=== PATIENT | male | born 1960 | race African-American/Black ===

== ENCOUNTER 2018-11-08 09:48 | Inpatient (IN) | payer MEDICARE, MEDICAID ==
[~2018-11-08] VITALS: Ht 198.1 cm; Wt 69.4 kg
[2018-11-08] MEDS ORDERED: HALOPERIDOL LACTATE 5 MG/ML VIAL IM ONE (10:45)
[2018-11-08] MEDS ORDERED: LORazepam 2 MG/ML VIAL IM ONE (10:45)
[2018-11-08] MEDS ORDERED: DiphenhydrAMINE HCL 50 MG/ML VIAL IM ONE (10:45)
[2018-11-08 12:42] LABS: BASOPHILS % (AUTO) 0.9 % (0.0-2.0); EOSINOPHILS % (AUTO) 2.1 % (1.0-6.0); HEMATOCRIT 35.3 % (41-53); HEMOGLOBIN 11.5 g/dL (13.5-17.5); LYMPHOCYTES # (AUTO) 1.5 K/uL (1.0-4.8); LYMPHOCYTES % (AUTO) 27.9 % (22.0-44.0); MEAN CORPUSCULAR HEMOGLOBIN 31.7 pg (26.0-34.0); MEAN CORPUSCULAR HGB CONC 32.6 G/dL (31.0-37.0); MEAN CORPUSCULAR VOLUME 97 fL (80-100); MONOCYTES # (AUTO) 0.4 K/uL (0.1-1.0); NEUTROPHILS # (AUTO) 3.3 K/uL (1.8-7.7); NEUTROPHILS % (AUTO) 62.1 % (40.0-70.0); PLATELET COUNT (AUTO) 333 K/uL (150-450); RED BLOOD CELL COUNT(AUTO) 3.63 MIL/uL (4.50-5.90); RED CELL DISTRIBUTION WIDTH 14.5 % (11.5-14.5)
[2018-11-08 12:50] LABS: ANION GAP 5 mmol/L (8-16); CALCIUM, TOTAL 8.7 mg/dL (8.8-10.5); CARBON DIOXIDE 30 mmol/L (22-29); CHLORIDE 106 mmol/L (98-107); CREATININE 1.34 mg/dL (0.60-1.30); GLOMERULAR FILTR. RATE CALC > 60 mL/min (>60); GLUCOSE,RANDOM 141 mg/dL (70-110); POTASSIUM 3.7 mmol/L (3.5-5.1); SODIUM SERUM 141 mmol/L (136-145); UREA NITROGEN, BLOOD 19 mg/dL (7-18)
[2018-11-08 12:57] LABS: ALANINE AMINOTRANSFERASE 23 U/L (12-78); ALKALINE PHOSPHATASE 61 U/L (46-116); ASPARTATE AMINOTRANSFERASE 41 U/L (15-37); BILIRUBIN,TOTAL 0.5 mg/dL (0.1-1.0); TOTAL PROTEIN, SERUM 6.6 g/dL (6.4-8.2)
[2018-11-08] MEDS ORDERED: BACITRACIN 0.9 GM PACKET OINTMENT TP ONE (14:00)
[2018-11-08] MEDS ORDERED: HALOPERIDOL 5 MG TABLET PO PRN (14:30)
[2018-11-08] MEDS ORDERED: ZOLPIDEM TARTRATE 10 MG TABLET PO PRN (14:30)
[2018-11-08 16:40] LABS: AMPHET/METH SCREEN,URINE NEGATIVE (NEGATIVE); BARBITURATE SCREEN, URINE NEGATIVE (NEGATIVE); BENZODIAZEPINES SCREEN,URINE NEGATIVE (NEGATIVE); CANNABINOID SCREEN,URINE POSITIVE (NEGATIVE); COCAINE SCREEN,URINE POSITIVE (NEGATIVE); METHADONE SCREEN, URINE NEGATIVE (NEGATIVE); OPIATE SCREEN,URINE NEGATIVE (NEGATIVE); PHENCYCLIDINE SCREEN,URINE NEGATIVE (NEGATIVE)
[2018-11-08 17:28] VITALS: BP 142/76
[2018-11-08] MEDS ORDERED: ONDANSETRON HCL 4 MG TABLET PO PRN (20:45)
[2018-11-08] MEDS ORDERED: PETROLATUM,WHITE 28 GM JELLY TP PRN (20:45)
[2018-11-08] MEDS: BACITRACIN 0.9 GM PACKET OINTMENT TP SCH (20:45)
[2018-11-08] MEDS ORDERED: GuaiFENesin/D-METHORPHAN [SUGAR-FREE] 200-20MG/10 ML SYRUP UDCUP PO PRN (20:45)
[2018-11-08] MEDS ORDERED: LOPERAMIDE HCL 2 MG CAPSULE PO PRN (20:45)
[2018-11-08] MEDS ORDERED: ACETAMINOPHEN 325 MG TABLET PO PRN (20:45)
[2018-11-08] MEDS ORDERED: IBUPROFEN 400 MG TABLET PO PRN (20:45)
[2018-11-08] MEDS ORDERED: MAG HYDROX/AL HYDROX/SIMETH ES 30 ML SUSPENSION UDCUP PO PRN (20:45)
[2018-11-08] MEDS ORDERED: DOCUSATE SODIUM 100 MG CAPSULE PO PRN (20:45)
[2018-11-08] MEDS ORDERED: ALBUTEROL SULFATE HFA 90 MCG/PUFF 8 GM INHALER IH PRN (20:45)
[2018-11-08] MEDS ORDERED: NICOTINE 14 MG/24 HOUR PATCH TD PRN (20:45)
[2018-11-08] MEDS ORDERED: MAGNESIUM HYDROXIDE SUSPENSION 30 ML UDCUP PO PRN (20:45)
[2018-11-08] MEDS ORDERED: CloNIDine HCL 0.1 MG TABLET PO PRN (20:45)
[2018-11-09] MEDS: BACITRACIN 0.9 GM PACKET OINTMENT TP SCH ×2 (08:44→17:00)
[2018-11-09] MEDS ORDERED: THIAMINE HCL 100 MG TABLET PO ONE (13:30)
[2018-11-09 16:13] VITALS: BP 110/84
[2018-11-09] MEDS: ZIPRASIDONE HCL 40 MG CAPSULE PO SCH (17:00)
[2018-11-10] MEDS: ZIPRASIDONE HCL 40 MG CAPSULE PO SCH ×2 (06:32→16:53)
[2018-11-10] MEDS: BACITRACIN 0.9 GM PACKET OINTMENT TP SCH ×2 (09:00→16:53)
[2018-11-10] MEDS: FOLIC ACID 1 MG TABLET PO SCH (09:00)
[2018-11-10] MEDS: MULTIVITAMINS WITH MINERALS, THERAPEUTIC TABLET PO SCH (09:00)
[2018-11-10] MEDS ORDERED: THIORIDAZINE HCL 50 MG TABLET PO ONE (12:15)
[2018-11-10] MEDS ORDERED: THIORIDAZINE HCL 25 MG TABLET PO ONE (12:30)
[2018-11-10 16:24] VITALS: BP 140/84
[2018-11-10] MEDS: THIORIDAZINE HCL 25 MG TABLET PO SCH (16:53)
[2018-11-10] MEDS: LORazepam 2 MG TABLET PO PRN (20:33)
[2018-11-11 03:02] VITALS: BP 107/64
[2018-11-11] MEDS: LORazepam 2 MG TABLET PO PRN ×2 (03:08→16:59)
[2018-11-11] MEDS: ZIPRASIDONE HCL 40 MG CAPSULE PO SCH (07:00)
[2018-11-11] MEDS: THIORIDAZINE HCL 25 MG TABLET PO SCH ×2 (08:11→16:59)
[2018-11-11] MEDS: MULTIVITAMINS WITH MINERALS, THERAPEUTIC TABLET PO SCH (08:13)
[2018-11-11] MEDS: FOLIC ACID 1 MG TABLET PO SCH (08:13)
[2018-11-11] MEDS: BACITRACIN 0.9 GM PACKET OINTMENT TP SCH ×2 (09:00→17:00)
[2018-11-11 16:16] VITALS: BP 108/62
[2018-11-12 06:45] VITALS: BP 116/78
[2018-11-12] MEDS: THIORIDAZINE HCL 25 MG TABLET PO SCH ×2 (08:13→16:50)
[2018-11-12] MEDS: BACITRACIN 0.9 GM PACKET OINTMENT TP SCH ×2 (08:18→16:51)
[2018-11-12 08:48] VITALS: BP 114/74
[2018-11-12] MEDS: MULTIVITAMINS WITH MINERALS, THERAPEUTIC TABLET PO SCH (09:00)
[2018-11-12] MEDS: FOLIC ACID 1 MG TABLET PO SCH (09:00)
[2018-11-12] MEDS: LORazepam 2 MG TABLET PO PRN ×2 (12:24→16:51)
[2018-11-12 17:09] VITALS: BP 114/74
[2018-11-13] MEDS: LORazepam 2 MG TABLET PO PRN (00:32)
[2018-11-13 00:56] VITALS: BP 139/98
[2018-11-13] MEDS: MULTIVITAMINS WITH MINERALS, THERAPEUTIC TABLET PO SCH (09:00)
[2018-11-13] MEDS: BACITRACIN 0.9 GM PACKET OINTMENT TP SCH (09:00)
[2018-11-13] MEDS: FOLIC ACID 1 MG TABLET PO SCH (09:00)
[2018-11-13] MEDS: THIORIDAZINE HCL 25 MG TABLET PO SCH (09:10)
[2018-11-13 11:00] VITALS: BP 115/79
[2018-11-13] MEDS ORDERED: THIO50 PO (14:09)
== END 2018-11-13 10:41 | disposition home or self-care (01) | DRG 885 ==
LOC: EMS 09:50 → B3A 17:33
PROVIDERS: ADMIT Psychiatry & Neurology Psychiatry; ATTEND Psychiatry & Neurology Psychiatry
DX: F25.0 Schizoaffective disorder, bipolar type (principal); R45.851 Suicidal ideations; N17.9 Acute kidney failure, unspecified; R45.87 Impulsiveness; F90.9 Attention-deficit hyperactivity disorder, unspecified type; F19.90 Other psychoactive substance use, unspecified, uncomplicated; R74.0 Nonspecific elevation of levels of transaminase and lactic acid dehydrogenase [LDH]; Z79.899 Other long term (current) drug therapy; Z59.0 Homelessness; Z91.19 Patient's noncompliance with other medical treatment and regimen; Z87.891 Personal history of nicotine dependence
CPT/HCPCS: G0480; J1200; J1630; J2060